=== PATIENT | female | born 1930 | race Hispanic/Latino ===

== ENCOUNTER 2016-12-21 10:52 | Observation (INO) | payer MEDICARE ==
[2016-12-21 11:20] VITALS: BMI 22.1
--- NOTE | 2016-12-21 11:20 | ED PDOC ---
Syncope/Near Syncope/Dizziness Time Seen by Provider: 12/21/16 10:59 Chief Complaint (Nursing): Dizziness/Lightheaded Chief Complaint (Provider): S/P mechanical fall History Per: Patient History/Exam Limitations: no limitations Onset/Duration Of Symptoms: Days (x2) Current Symptoms Are (Timing): Still Present Additional Complaint(s): Sara Zayas is an 86 year old female with a past medical history of a head injury occurring in October 2016 followed by subsequent dizziness post fall and Afib, but is not on anticoagulants presenting to the ED s/p mechanical fall occurring on Wednesday. The patient reports an injury to the left side of her head and twisted her head feeling pain to the left side of her neck. She also reports injuring her right hand and left hip. The patient reports associated dizziness and headache. She denies loss of consciousness. PMD: TBD Past Medical History Reviewed: Historical Data, Nursing Documentation, Vital Signs - Medical History PMH: Atrial Fibrillation, HTN - Family History Family History: States: Unknown Family Hx - Immunization History Hx Influenza Vaccination: No Hx Pneumococcal Vaccination: No - Home Medications Home Medications: Ambulatory Orders Medication Instructions Recorded No Known Home Med 12/21/16 - Allergies Allergies/Adverse Reactions: Allergies Allergy/AdvReac Type Severity Reaction Status Date / Time codeine Allergy RASH Verified 12/21/16 11:04 Review of Systems ROS Statement: Except As Marked, All Systems Reviewed And Found Negative Musculoskeletal: Positive for: Neck Pain (left sided ), Hand Pain (right hand injury), Leg Pain (left hip injury), Other (injury to left side of head) Neurological: Positive for: Headache, Dizziness. Negative for: Other (no loss of consciousness ) Physical Exam - Reviewed Nursing Documentation Reviewed: Yes Vital Signs Reviewed: Yes - Physical Exam Appears: Positive for: Non-toxic, No Acute Distress Head Exam: Positive for: ATRAUMATIC (soft tissue swelling left parietal area ), NORMOCEPHALIC (no palpable fracture ) Eye Exam: Positive for: Normal appearance, EOMI, PERRL (PERRLA) Neck: Positive for: Supple (no posterior cervical tenderness ). Negative for: Painless ROM (pain on ROM ) Cardiovascular/Chest: Positive for: Regular Rate, Rhythm. Negative for: Murmur Respiratory: Positive for: Normal Breath Sounds (equal breath sounds bilaterally ). Negative for: Respiratory Distress Back: Positive for: Normal Inspection. Negative for: L CVA Tenderness, R CVA Tenderness, Vertebral Tenderness (no spinal tenderness or deformity) Extremity: Positive for: Other (right hand; ecchymosis to dorsum of hand; left hip: ecchymosis ). Negative for: Tenderness (to left hip ), Deformity (to right hand or left hip) Neurologic/Psych: Positive for: Alert, Oriented (x3). Negative for: Motor/ Sensory Deficits - Laboratory Results Result Diagrams: 12/21/16 11:45 12/21/16 11:45 Medical Decision Making Medical Decision Making: Time: 10:59 Impression: s/p mechanical fall Plan: * ED ekg * CT Cervical Spine w/o contrast * CT Head w/o contrast * [RAD] Hand 2 Views Right * [RAD] Wrist AP LAT POST Right * [RAD] Hip Min 2V W/ Pelvis Left * Reevaluation Scribe Attestation: Documented by Lay Jalloh, acting as a scribe for Arben Connelly MD. Provider Scribe Attestation: All medical record entries made by the Scribe were at my direction and personally dictated by me. I have reviewed the chart and agree that the record accurately reflects my personal performance of the history, physical exam, medical decision making, and the department course for this patient. I have also personally directed, reviewed, and agree with the discharge instructions and disposition. Disposition - Clinical Impression Clinical Impression: Concussion, Bradycardia - Patient ED Disposition Is Patient to be Admitted: Yes - Disposition Disposition Time: 13:22 Condition: FAIR Forms: Renrendai (Turkish) - Pt Status Changed To: Hospital Disposition Of: Observation - POA Present On Arrival: None
[2016-12-21 11:52] LABS: BASO % 0.1 % (0.0-2.0); EOS # 0.1 K/uL (0.0-0.7); EOS % 1.9 % (0.0-4.0); HEMATOCRIT 35.3 % (34.0-47.0); LYMPH # 1.7 K/uL (1.0-4.3); LYMPH % 42.1 % (20.0-40.0); MEAN CELL VOLUME 90.2 fl (81.0-99.0); MEAN CORPUSCULAR HEMOGLOBIN 30.2 pg (27.0-31.0); MEAN CORPUSCULAR HGB CONC 33.5 g/dL (33.0-37.0); MEAN PLATELET VOLUME 7.8 fl (7.2-11.7); MONO # 0.3 K/uL (0.0-0.8); MONO % 6.2 % (0.0-10.0); NEUT # 2.1 K/uL (1.8-7.0); NEUT % 49.7 % (50.0-75.0); NRBC % 0.1 % (0.0-0.0); RED CELL DISTRIBUTION WIDTH 14.2 % (11.5-14.5); WHITE BLOOD COUNT 4.1 K/uL (4.8-10.8)
[2016-12-21 12:04] LABS: ALB/GLOB RATIO 1.3 (1.0-2.1); ALKALINE PHOSPHATASE 58 U/L (38-126); ALT/SGPT 33 U/L (9-52); AST/SGOT 25 U/L (14-36); BILIRUBIN,TOTAL 0.6 mg/dl (0.2-1.3); BLOOD UREA NITROGEN 18 mg/dl (7-17); CALCIUM 9.2 mg/dL (8.4-10.2); CARBON DIOXIDE 26 mmol/L (22-30); CHLORIDE 110 mmol/L (98-107); GFR AFRICAN-AMERICAN > 60; GLUCOSE,RANDOM 88 mg/dL (65-105); POTASSIUM 3.9 MMOL/L (3.6-5.0); SODIUM 145 mmol/l (132-148); TOTAL PROTEIN 6.4 G/DL (6.3-8.2)
[2016-12-21 12:20] LABS: T4 7.67 ug/dl (5.5-11.0)
[2016-12-21 12:34] LABS: THYROID STIMULATING HORMONE 1.98 mIU/ML (0.46-4.68)
--- NOTE | 2016-12-21 12:57 | CT ---
PROCEDURE: CT HEAD WITHOUT CONTRAST. HISTORY: r/o bleed COMPARISON: None available. TECHNIQUE: Axial computed tomography images were obtained through the head/brain without intravenous contrast. Radiation dose: Total exam DLP = 859.84 mGy-cm. This CT exam was performed using one or more of the following dose reduction techniques: Automated exposure control, adjustment of the mA and/or kV according to patient size, and/or use of iterative reconstruction technique. FINDINGS: HEMORRHAGE: No intracranial hemorrhage. BRAIN: Diffuse expansion of the ventriculosulcal and cisternal spaces is appreciated with white matter lucency compatible with diffuse cerebral atrophy and chronic microangiopathy. No mass-effect or extra-axial fluid collections appreciated in the midline brain and appears unremarkable diffusely. Asymmetric white-matter density at the bilateral occipital lobes felt to be reflective of chronic microangiopathy or potential chronic infarcts. No mass-effect is associated here specifically. Unremarkable. No hydrocephalus. CALVARIUM: Note is made of a a 2.5 cm lucency at the left frontal bone suggestive of probable benign hemangioma or other benign bony lesion. This can be confirmed by bone scan if clinically warranted. PARANASAL SINUSES: Unremarkable as visualized. No significant inflammatory changes. MASTOID AIR CELLS: Unremarkable as visualized. No inflammatory changes. OTHER FINDINGS: None. IMPRESSION: No intracranial hemorrhage, mass effect or cortical edema throughout. Age-related neuro degenerative changes are appreciated as discussed above. Incidental probable benign meningioma left frontal bone or other nonaggressive left frontal bone lesion. Nuclear bone scan can be used for further characterization if clinically warranted.
--- NOTE | 2016-12-21 13:02 | CT ---
PROCEDURE: CT Cervical Spine without contrast HISTORY: Trauma COMPARISON: None available. TECHNIQUE: Axial computed tomography images were obtained of the cervical spine without the use of intravenous contrast. Coronal and sagittal reformatted images were created and reviewed. Radiation dose: Total exam DLP = 303.76 mGy-cm. This CT exam was performed using one or more of the following dose reduction techniques: Automated exposure control, adjustment of the mA and/or kV according to patient size, and/or use of iterative reconstruction technique. FINDINGS: VERTEBRAE: No displaced fractures identified and the cervical curvature is interrupted by a grade 1 spondylolisthesis at C4-5 with C4 slightly anterior to C5 on a degenerative facet joint basis. Multilevel facet arthropathy appears advanced diffusely. No suspicious lytic or blastic changes throughout. The odontoid process appears intact as well as the C1-2 articulation. The craniocervical junction appears unremarkable. DISCS/SPINAL CANAL/NEURAL FORAMINA: Multilevel spondylosis appreciated seen worst at the C5-6 and C6-7 levels, predominantly anterior. No severe spinal stenosis appreciated although variable neural foraminal stenoses are appreciated bilaterally due to uncovertebral and facet arthropathy, seen worst at the right C4 foramen which is severely stenosed. PARASPINAL SOFT TISSUES: Unremarkable. OTHER FINDINGS: Gross biapical pulmonary fibrosis noted. IMPRESSION: 1. No fractures appreciated throughout the cervical spine although a degenerative grade 1 spondylolisthesis identified at C4-5. No significant central canal stenosis results. 2. Multilevel uncovertebral and facet arthropathy results in variable neural foraminal stenoses, seen worst at the right C4 foramen which is severely stenosed on degenerative basis. 3. Incidental pulmonary fibrosis bilaterally noted.
--- NOTE | 2016-12-21 13:03 | RAD ---
PROCEDURE: Radiographs of the Chest and Left Ribs. HISTORY: trauma COMPARISON: None. [place]. TECHNIQUE: Frontal radiograph of the chest and multiple oblique radiographs of the left ribs were obtained. FINDINGS: LEFT RIBS: No acute fracture or focal lesion visualized. Old, healed left clavicular fracture. LUNGS: Biapical scarring, fibronodular change. Findings better appreciated on concurrent cervical spine CT to include the apices. PLEURA: No pneumothorax or pleural fluid. CARDIOVASCULAR: No radiographic findings to suggest acute or significant cardiovascular disease. OTHER FINDINGS: None. IMPRESSION: No acute findings related to/accounting for the clinical presentation. Additional benign and/or incidental findings described above.
--- NOTE | 2016-12-21 13:04 | RAD ---
PROCEDURE: Right Hand Radiographs. HISTORY: trauma COMPARISON: None. FINDINGS: BONES: Normal. No fracture. JOINTS: Mild osteoarthritic changes. SOFT TISSUES: Normal. OTHER FINDINGS: None. IMPRESSION: No acute findings related to/accounting for the clinical presentation. Please note: No preliminary report/ innterpretation of this examination provided by emergency department personnel.
--- NOTE | 2016-12-21 13:05 | RAD ---
PROCEDURE: Left Hip X-ray Radiographs. HISTORY: trauma COMPARISON: None. FINDINGS: BONES: Normal. No fracture. JOINTS: Moderate degenerative changes both hips SOFT TISSUES: Normal. OTHER FINDINGS: None. IMPRESSION: No acute findings related to/accounting for the clinical presentation. Please note: No preliminary report/ innterpretation of this examination provided by emergency department personnel.
--- NOTE | 2016-12-21 13:05 | RAD ---
PROCEDURE: Right Wrist Radiographs. HISTORY: trauma COMPARISON: None. FINDINGS: BONES: No acute fractures. Diffuse osteopenia JOINTS: Normal. No dislocation. SOFT TISSUES: Normal. OTHER FINDINGS: None. IMPRESSION: No acute findings related to/accounting for the clinical presentation. Please note: No preliminary report/ innterpretation of this examination provided by emergency department personnel.
[2016-12-22] MEDS ORDERED: Enoxaparin 40 mg Syringe SC SCH (09:00)
--- NOTE | 2016-12-22 10:07 | CP.PCM.HP ---
History of Present Illness - History of Present Illness History of Present Illness: 86 YO pleasant female w/ h/o falls, is admitted after she fell on Wednesday. Patients fall before this incident was in July of 2016, when her heel from her shoe got stuck into the gutter which lead her to fall and land on her head. denies loss of consciousness at that time but, resulted in nausea and vomiting for three days. She did not go for a Ct scan on that visit. Most recently she was cleaning her kitchen and, she felt a little unsteady and attempted to grab onto a swivel stool, that moved and she ended up falling and struck her head on the floor. Denies loss of consciousness, nausea or vomiting with this episode. During the same fall she struck her hand on the counter while falling and states it was very bruised, she took some remedy to help her with her hand swelling. After patient struck her head she went on with her daily activities and drove to see a musical. She presented to the ER because of continuing of headache and dizziness. - Patient states she knows of one episode of atrial fibrilation she had, and was offered coumadin at that time, which she had declined. States she never was never told she had atrial fibrilation after that. Patient does not follow up with a cephalometric tracer. PMH: Atrial Fibrillation (episode, as per patient), Zoster Allergy: Codine Present on Admission - Present on Admission Any Indicators Present on Admission: No Past Patient History - Past Social History Smoking Status: Never Smoked - CARDIAC Hx Cardiac Disorders: Yes Hx Hypertension: Yes - PULMONARY Hx Respiratory Disorders: No Other/Comment: Shingles - NEUROLOGICAL Hx Neurological Disorder: No - HEENT Hx HEENT Problems: No - RENAL Hx Chronic Kidney Disease: No - ENDOCRINE/METABOLIC Hx Endocrine Disorders: No - HEMATOLOGICAL/ONCOLOGICAL Hx Blood Disorders: No Hx Blood Transfusions: No - INTEGUMENTARY Hx Dermatological Problems: No - MUSCULOSKELETAL/RHEUMATOLOGICAL Hx Musculoskeletal Disorders: Yes Hx Falls: Yes - GASTROINTESTINAL Hx Gastrointestinal Disorders: No - GENITOURINARY/GYNECOLOGICAL Hx Genitourinary Disorders: No - PSYCHIATRIC Hx Psychophysiologic Disorder: No Hx Substance Use: No - SURGICAL HISTORY Hx Surgeries: Yes Hx Appendectomy: Yes - ANESTHESIA Hx Anesthesia: Yes Hx Anesthesia Reactions: Yes Hx Malignant Hyperthermia: No Has any member of the family had a problem w/ anesthesia?: Yes (Son) Meds Allergies/Adverse Reactions: Allergies Allergy/AdvReac Type Severity Reaction Status Date / Time codeine Allergy RASH Verified 12/21/16 11:04 Physical Exam - Constitutional Appears: No Acute Distress - Head Exam Additional comments: 2 cm x 2 cm swelling on occiptial portion of patients head - Respiratory Exam Respiratory Exam: Clear to Auscultation Bilateral, NORMAL BREATHING PATTERN - GI/Abdominal Exam GI & Abdominal Exam: Normal Bowel Sounds, Soft. absent: Tenderness - Extremities Exam Extremities exam: Positive for: normal inspection. Negative for: calf tenderness, tenderness - Neurological Exam Neurological exam: Alert, CN II-XII Intact, Oriented x3 Additional comments: Gait is normal for age, slightly unsteady but able to ambulate with support - Skin Skin Exam: Normal Color, Warm Results - Vital Signs Recent Vital Signs: Last Vital Signs Temp 97.6 F 12/22/16 08:33 Pulse 57 L 12/22/16 08:33 Resp 20 12/22/16 08:33 BP 156/68 H 12/22/16 08:33 Pulse Ox 98 12/22/16 08:33 - Labs Result Diagrams: 12/21/16 11:45 12/21/16 11:45 Labs: Laboratory Results - last 24 hr 12/21/16 12/21/16 11:45 11:45 WBC 4.1 L RBC 3.92 Hgb 11.8 L Hct 35.3 MCV 90.2 MCH 30.2 MCHC 33.5 RDW 14.2 Plt Count 190 MPV 7.8 Neut % (Auto) 49.7 L Lymph % (Auto) 42.1 H Archuleta % (Auto) 6.2 Eos % (Auto) 1.9 Baso % (Auto) 0.1 Neut # 2.1 Lymph # 1.7 Archuleta # 0.3 Eos # 0.1 Baso # 0.0 Sodium 145 Potassium 3.9 Chloride 110 H Carbon Dioxide 26 Anion Gap 13 BUN 18 H Creatinine 0.6 L Est GFR ( Amer) > 60 Est GFR (Non-Af Amer) > 60 Random Glucose 88 Calcium 9.2 Total Bilirubin 0.6 AST 25 ALT 33 Alkaline Phosphatase 58 Total Protein 6.4 Albumin 3.7 Globulin 2.7 Albumin/Globulin Ratio 1.3 Thyroxine (T4) 7.67 Total T3 0.903 L TSH 3rd Generation 1.98 Assessment & Plan - Assessment and Plan (Free Text) Assessment: 1) Head trauma secondary to fall - Head CT shows no intracranial hemmorhage, mass effect or cortical edema. - cardio consulted secondary to patient bradycardia and history of afib - Neruo consulted due to reccurent falls and head trauma. - Pt/OT 2) Bradycardia ( Currently asymptomatic) - Could be patients baseline - Cardio has been consulted 3) H/O A Fib - currently in sinus rhythm - Monitor in tele - Cardio consulted
--- NOTE | 2016-12-22 11:41 | CARD ---
APPROVED REPORT EXAM: Two-dimensional and M-mode echocardiogram with Doppler and color Doppler. Other Information Quality : GoodRhythm : NSR INDICATION Abnormal EKG/Arrhythmia 2D DIMENSIONS IVSd1.14 (0.7-1.1cm)LVDd4.17 (3.9-5.9cm) LVOT Diameter2.34 (1.8-2.4cm)PWd1.23 (0.7-1.1cm) IVSs1.32 (0.8-1.2cm)LVDs2.54 (2.5-4.0cm) FS (%) 39.0 %PWs1.36 (0.8-1.2cm) M-Mode DIMENSIONS Left Atrium (MM)3.71 (2.5-4.0cm)IVSd0.90 (0.7-1.1cm) Aortic Root3.29 (2.2-3.7cm)LVDd4.86 (4.0-5.6cm) Aortic Cusp Exc.2.21 (1.5-2.0cm)PWd0.88 (0.7-1.1cm) IVSs1.57 cmFS (%) 48 % LVDs2.52 (2.0-3.8cm)PWs1.60 cm Mitral Valve MV E Pxkbxywb31.5cm/sMV DECEL [id number] A Ajyewull69.4cm/s MV FZC93klV/A ratio0.8MVA (PHT)3.00cm2 TDI Lateral E' Peak V7.01cm/sMedial E' Peak V7.50cm/sE/Lateral E'9.6 E/Medial E'9.0 Pulmonary Valve PV Peak Iwlgqhyi10.5cm/s Tricuspid Valve TR Peak Fytljqlg462rb/sRAP ORTHFZTV24ooCiKT Peak Gr.24mmHg [id number] LEFT VENTRICLE The left ventricle is normal size. There is normal left ventricular wall thickness. The left ventricular function is normal. The left ventricular ejection fraction is 65% There is normal LV segmental wall motion. Transmitral Doppler flow pattern is Grade I-abnormal relaxation pattern. No left ventricle thrombus noted on this study. There is no ventricular septal defect visualized. There is no left ventricular aneurysm. There is no mass noted in the left ventricle. RIGHT VENTRICLE The right ventricle is normal size. There is normal right ventricular wall thickness. The right ventricular systolic function is normal. ATRIA The left atrium size is normal. The right atrium size is normal. The interatrial septum is intact with no evidence for an atrial septal defect. AORTIC VALVE The aortic valve is normal in structure and function. No aortic regurgitation is present. There is no aortic valvular stenosis. There is no aortic valvular vegetation. MITRAL VALVE The mitral valve is normal in structure and function. There is no evidence of mitral valve prolapse. There is no mitral valve stenosis. There is no mitral valve regurgitation noted. TRICUSPID VALVE The tricuspid valve is normal in structure and function. There is no tricuspid valve regurgitation noted. There is no tricuspid valve prolapse or vegetation. There is no tricuspid valve stenosis. PULMONIC VALVE The pulmonary valve is normal in structure and function. There is no pulmonic valvular regurgitation. There is no pulmonic valvular stenosis. GREAT VESSELS The aortic root is normal in size. The ascending aorta is normal in size. The IVC is normal in size and collapses >50% with inspiration. PERICARDIAL EFFUSION The pericardium appears normal. There is no pleural effusion. <Conclusion> Normal LV Systolic Function Mild Mitral Regurgitation
--- NOTE | 2016-12-22 12:47 | CARD ---
APPROVED REPORT EKG Measurement Heart [id number] MA [id number] <Conclusion> Sinus bradycardia Otherwise normal ECG
[2016-12-22 16:23] VITALS: BP 153/74; PULSE 65; RESP 16; TEMP 98.3; O2SAT 99
--- NOTE | 2016-12-22 17:55 | CON ---
NEUROLOGY CONSULTATION DATE: 12/22/2016 CHIEF COMPLAINT: Falls. HISTORY OF PRESENT ILLNESS: This is an 86-year-old pleasant woman with history of AFib. The patient also has a history of multiple falls in the past, who fell on Wednesday. The fall before this was in July 2001 where the heels of her shoe got stuck in a gutter, which led her to fall and landed on her head. Denies any loss of consciousness at that time, but resulted in nausea and vomiting, had a concussion at that time. Most recently, she was cleaning her kitchen and felt unsteady and attempted to grab onto a swivel stool that moved and she ended up falling before striking her head on the floor. CAT scan of the head showed no acute intracranial abnormality, no evidence of any bleed. No loss of consciousness. She is moving around. She is walking around without any difficulty. She is very active. She denies any dizziness at this time. No focal weakness of the extremities. PAST MEDICAL HISTORY: She has AFib, but not on any Coumadin; hypertension. SOCIAL HISTORY: No illicit drug use, smoking, or EtOH abuse. ALLERGIES: NOTED TO CODEINE. FAMILY HISTORY: Noncontributory. MEDICATIONS: Reviewed by nurse per reconciliation sheet. PHYSICAL EXAMINATION VITAL SIGNS: Temperature of 98.2, pulse rate of 69, blood pressure 129/69, respiratory rate 20, and oxygen saturation 98% on room air. GENERAL: The patient is sitting up in bed, in no acute distress. HEENT: Head is atraumatic and normocephalic. PERRLA. Extraocular muscles intact. NECK: Supple. No JVD. No adenopathy noted. LUNGS: Clear to auscultation. No adventitious sounds. HEART: S1 and S2. Normal rate and rhythm. No murmur, rubs, or gallops. ABDOMEN: Soft, nontender, and nondistended. Bowel sounds are present. EXTREMITIES: No clubbing. No cyanosis. Peripheral pulses 2+ felt bilaterally. NEUROLOGIC: The patient is alert and oriented to person, place, month, and year. Speech is fluent without any errors. Cranial nerves II through XII intact. Motor exam, moves all extremities equally. Toes are downgoing bilaterally. Sensory exam: Light touch, pinprick, proprioception, and vibration intact. DTRs are 2+ throughout. Coordination bxhkzx-av-tcko intact. Gait is normal. Romberg is negative. LABORATORY DATA: Sodium is 145, potassium 3.9, chloride 110, carbon dioxide 26, BUN of 18, creatinine 0.6, and random glucose 88. ASSESSMENT AND PLAN: This is an 86-year-old woman with history of atrial fibrillation, but not on Coumadin, who had a mechanical fall while cleaning. The fall is likely secondary to mechanical in nature superimposed on a deconditioned state. She is clinically and neurologically stable from my standpoint. She is doing well. CAT scan of the head was normal. No focal neurological deficits seen on examination. She does have bradycardia and it was asymptomatic. At this time, I recommend; 1. She can follow up with me as an outpatient in regards if she develops any headaches. 2. Follow up with Cardiology in regards to bradycardia as an outpatient. 3. Continue to monitor hydration and she is clinically stable from my standpoint for discharge. Vargas Bolton MD
--- NOTE | 2016-12-22 20:07 | CON ---
CARDIOLOGY CONSULTATION DATE: REASON FOR CONSULTATION: Fall and history of atrial fibrillation in the past. HISTORY OF PRESENT ILLNESS: The patient is an 86-year-old white female who was found to have atrial fibrillation in the past and was advised Coumadin therapy but the patient elected not to start anticoagulation. The patient is functioning reasonably well. She did have a mechanical fall 2 months ago as she was crossing [address] [place] [address] in [facility] and sustained a concussion, but no fractures. The patient to fall to trying to cross [address] [place] [address] after the traffic light turned to red in the middle of the [place]. The patient denies any syncope at that time. The patient presented because of a fall yesterday as she was trying to clean her apartment when she held into swivel chair and when the swivel chair turned around, she fell and sustained right hand and wrist bruising and pain. The patient denies any loss of consciousness. She does complain of headache, which she attributes to her recent concussion from [facility] fall 2 months ago. The patient denies any history of bony fractures in the past. Denies any history of a stroke and is unaware of any history of recent palpitations. SOCIAL HISTORY: Nonsmoker, nondrinker. She lives in a senior citizen home at [facility]. MEDICATIONS: Lovenox 40 mg subcutaneously once a day. She is on no medications at home. REVIEW OF SYSTEMS: No nausea or vomiting. No fever or chills. PHYSICAL EXAMINATION: GENERAL: The patient is an elderly female who does not appear to be in acute distress. VITAL SIGNS: Blood pressure 156/68, heart rate 67, temperature 97.6, respirations 20. EXTREMITIES: No pallor or icterus. NECK: No JVD. LUNGS: Chest clear. CARDIOPULMONARY: Heart sounds are regular. ABDOMEN: Soft. EXTREMITIES: No edema. Monitor revealed sinus rhythm. LABORATORY DATA: Hemoglobin and hematocrit 11.8 and 35.3, white count 4.1, platelet count 190,000. SMA-7: Sodium 145, potassium 3.9, chloride 110, CO2 of 26, glucose 88, BUN 18, creatinine 0.6. T3 level is 0.90 and TSH level is within normal limits. Rib x-ray, chest x-ray, right wrist x-ray, hip and pelvis x-ray, hand x-ray, and head CT scan, they all revealed no acute findings. EKG revealed sinus bradycardia at the rate of 49. Echocardiographic study revealed normal left ventricular systolic function, mild mitral insufficiency. Cervical spine CT scan, no fracture appreciated. A grade I spondylolysis identified at C4-5. No significant central canal stenosis is noted. Incidental pulmonary fibrosis bilaterally noted. ASSESSMENT: 1. Status post mechanical fall. 2. Very unlikely a syncopal episode. 3. Mild sinus bradycardia. RECOMMENDATIONS: Obtain a carotid Doppler and schedule the patient for an outpatient 24-hour ambulatory Holter monitor. Fabrizio Dunham MD
--- NOTE | 2016-12-23 10:37 | CARD ---
APPROVED REPORT EKG Measurement Heart [id number] CT [id number] <Conclusion> Sinus bradycardia Nonspecific ST abnormality Abnormal ECG
== END 2016-12-22 18:50 | disposition left against medical advice (07) ==
LOC: H.ER 10:52 → H.ERHOLD 13:21 → H.TEL 14:24
PROVIDERS: ADMIT Internal Medicine; ATTEND Internal Medicine
DX: S06.0X0A Concussion without loss of consciousness, initial encounter (principal); W18.30XA Fall on same level, unspecified, initial encounter; Y93.9 Activity, unspecified; Y92.000 Kitchen of unspecified non-institutional (private) residence as the place of occurrence of the external cause; I10 Essential (primary) hypertension; I48.91 Unspecified atrial fibrillation; S60.211A Contusion of right wrist, initial encounter; Z90.49 Acquired absence of other specified parts of digestive tract; Z91.81 History of falling; R29.6 Repeated falls; R00.1 Bradycardia, unspecified; R11.2 Nausea with vomiting, unspecified; R42 Dizziness and giddiness
CPT/HCPCS: 36415; 70450; 71101; 72125; 73100; 73120; 73502; 80053; 82607; 84436; 84443; 84480; 85025; 93005; 93306; 97161; 97165; 99285; G0378; G8978; G8979; G8980; G8987; G8988; G8989

== ENCOUNTER 2016-12-25 16:23 | Emergency (ER) | payer MEDICARE ==
[2016-12-25 16:23] VITALS: BMI 22.1
[2016-12-25 16:30] VITALS: BP 170/71; PULSE 56; RESP 16; TEMP 97; O2SAT 98
--- NOTE | 2016-12-25 18:11 | ED PDOC ---
Upper Extremity Pain/Injury Time Seen by Provider: 12/25/16 16:48 Chief Complaint (Nursing): Upper Extremity Problem/Injury Chief Complaint (Provider): left hand injury History Per: Patient History/Exam Limitations: no limitations Additional Complaint(s): 86yo F i ED was seen and admitted for fall injury-sustained in addition to a hand injury-negative xray, but now with swelling worse yesterday to right 2nd MCP with tenderness and improving redness without fever chills and dec ROM. right hand dominant Past Medical History Reviewed: Historical Data, Nursing Documentation, Vital Signs Vital Signs: Last Vital Signs Temp 97.0 F L 12/25/16 16:27 Pulse 56 L 12/25/16 16:27 Resp 16 12/25/16 16:27 BP 170/71 H 12/25/16 16:27 Pulse Ox 98 12/25/16 16:27 - Medical History PMH: Atrial Fibrillation, HTN Denies: Chronic Kidney Disease - Surgical History Surgical History: Appendectomy - Family History Family History: States: Unknown Family Hx - Immunization History Hx Influenza Vaccination: No Hx Pneumococcal Vaccination: No - Home Medications Home Medications: Ambulatory Orders Medication Instructions Recorded Cephalexin [cephalexin] 500 mg PO BID #20 cap 12/25/16 - Allergies Allergies/Adverse Reactions: Allergies Allergy/AdvReac Type Severity Reaction Status Date / Time codeine Allergy RASH Verified 12/21/16 11:04 Review of Systems ROS Statement: Except As Marked, All Systems Reviewed And Found Negative Musculoskeletal: Positive for: Hand Pain Physical Exam - Reviewed Nursing Documentation Reviewed: Yes Vital Signs Reviewed: Yes - Physical Exam Appears: Positive for: Well, Non-toxic, No Acute Distress Skin: Positive for: Normal Color, Warm, DRY Cardiovascular/Chest: Positive for: Regular Rate, Rhythm Respiratory: Positive for: CNT, Normal Breath Sounds Extremity: Positive for: Other (right hand: 2nd MCP-swelling/warmth/tenderness- most likely hematoma. ) Neurologic/Psych: Positive for: Alert, Oriented - ECG O2 Sat by Pulse Oximetry: 98 - Progress ED Course And Treament: pt does not want to stay for repeat xray. most likiely with cellulites due to stasis of hematoma. advised to apply warm compress to are and rx abx Medical Decision Making Medical Decision Making: Rx abx f.u with pmd Disposition - Clinical Impression Clinical Impression: Hematoma - Patient ED Disposition Is Patient to be Admitted: No Counseled Patient/Family Regarding: Need For Followup, Rx Given - Disposition Referrals: Ross Javier MD [Medical Doctor] - Disposition: Routine/Home Disposition Time: 18:13 Condition: STABLE Prescriptions: Cephalexin [cephalexin] 500 mg PO BID #20 cap Instructions: Hematoma (ED) Forms: [email or web address] (I[place]ic)
== END 2016-12-25 18:01 | disposition home or self-care (01) ==
LOC: H.ER 16:23
DX: L03.114 Cellulitis of left upper limb (principal); I10 Essential (primary) hypertension; I48.91 Unspecified atrial fibrillation